=== PATIENT | male | born 1975 ===

== ENCOUNTER → 2017-06-15 | Outpatient (CLI) | payer OTHER ==
[2017-06-15 16:51] LABS: BASO # 0.1 (0.0-0.2); BASO % 1.1 % (0.0-2.0); EOS # 0.2 (0.0-0.7); EOS % 1.4 % (0-4.0); GRAN % 71.2 % (42.2-75.2); HEMATOCRIT 42.5 % (42.0-52.0); HEMOGLOBIN 15.3 g/dl (13.5-18.0); LYMPH # 2.3 (1.2-3.4); LYMPH % 20.8 % (20.0-51.0); MEAN CELL VOLUME 85 fl (80.0-100.0); MEAN CORPUSCULAR HEMOGLOBIN 31 pg (27.0-31.0); MEAN CORPUSCULAR HGB CONC 36 g/dl (33.0-37.0); MEAN PLATELET VOLUME 10.2 fl (7.4-10.4); MONO # 0.6 (0.1-0.6); MONO % 5.1 % (1.7-9.3); PLATELET COUNT 293 K/mm3 (130-400); RED BLOOD COUNT 4.99 M/mm3 (4.20-5.60); REDCELL DISTRIBUTION WIDTH-CV 12.5 % (11.5-14.5)
[2017-06-15 16:53] LABS: CALCIUM 9.3 mg/dL (8.4-10.2); CREATININE, serum 1.13 mg/dL (0.66-1.25)
== END ==
LOC: COL.LAB 14:42
PROVIDERS: Family Medicine
DX: I16.0 Hypertensive urgency (principal)

== ENCOUNTER 2017-12-29 15:20 | Inpatient (IN) | payer OTHER ==
[~2017-12-29] VITALS: Ht 166 cm; Wt 72.6 kg
[2017-12-29] VITALS (131 sets, daily range): BP systolic 160–175; BP diastolic 100–114; PULSE 76–79; TEMP 98.3–98.9; O2SAT 97–100
[2017-12-29 15:46] LABS: BASO # 0.1 (0.0-0.2); EOS # 0.4 (0.0-0.7); EOS % 3.3 % (0-4.0); GRAN # 7.2 (1.4-6.5); GRAN % 64.1 % (42.2-75.2); HEMATOCRIT 39.8 % (42.0-52.0); HEMOGLOBIN 14.2 g/dl (13.5-18.0); LYMPH # 2.9 (1.2-3.4); MEAN CELL VOLUME 85 fl (80.0-100.0); MEAN CORPUSCULAR HEMOGLOBIN 30 pg (27.0-31.0); MEAN CORPUSCULAR HGB CONC 36 g/dl (33.0-37.0); MEAN PLATELET VOLUME 9.7 fl (7.4-10.4); MONO # 0.6 (0.1-0.6); MONO % 5.3 % (1.7-9.3); PLATELET COUNT 257 K/mm3 (130-400); RED BLOOD COUNT 4.69 M/mm3 (4.20-5.60); REDCELL DISTRIBUTION WIDTH-CV 12.4 % (11.5-14.5)
[2017-12-29 16:05] LABS: ALBUMIN 4.1 gm/dL (3.5-5.0); BILIRUBIN,TOTAL 0.7 mg/dL (0.0-1.0); C-REACTIVE PROTEIN 0.8 mg/dL (0.0-0.9); CALCIUM 8.8 mg/dL (8.4-10.2); CREATININE, serum 1.13 mg/dL (0.66-1.25); TOTAL PROTEIN 7.6 gm/dL (6.4-8.2)
[2017-12-29 16:14] LABS: TROPONIN-I 0.018 ng/mL (0.000-0.034)
[2017-12-29 16:24] LABS: COLLECTION METHOD CLEAN CATCH
[2017-12-29 16:36] LABS: PH 7 (5-8); SQUAMOUS EPITHELIAL None Seen /hpf; URINE APPEARANCE Clear; URINE BACTERIA None Seen /hpf; URINE BILIRUBIN Negative (NEGATIVE); URINE BLOOD Negative (NEGATIVE); URINE COLOR Straw; URINE GLUCOSE Negative (NEGATIVE); URINE KETONE Negative (NEGATIVE); URINE LEUKOCYTE ESTERASE Negative (NEGATIVE); URINE NITRATE Negative (NEGATIVE); URINE PROTEIN(semi-quant) 1+ (NEGATIVE); URINE RBC 0-2 /hpf; URINE UROBILINOGEN Negative (NEGATIVE)
[2017-12-29 17:02] LABS: TRICYCLIC ANTIDEPRESS URINE NEGATIVE
[2017-12-30] VITALS (711 sets, daily range): BP systolic 156–177; BP diastolic 97–118; PULSE 67–89; TEMP 97.6–99; O2SAT 96–100
[2017-12-30 05:21] LABS: ALBUMIN 4.1 gm/dL (3.5-5.0); BILIRUBIN,TOTAL 1.1 mg/dL (0.0-1.0); CALCIUM 8.8 mg/dL (8.4-10.2); CREATININE, serum 1.07 mg/dL (0.66-1.25); POTASSIUM 3.2 mmol/L (3.4-5.0); TOTAL PROTEIN 7.6 gm/dL (6.4-8.2)
[2017-12-31 01:15] VITALS: BP 158/96; PULSE 71; TEMP 98.7
[2017-12-31 07:22] LABS: BASO # 0.1 (0.0-0.2); BASO % 1.1 % (0.0-2.0); EOS # 0.3 (0.0-0.7); EOS % 3.5 % (0-4.0); GRAN # 6.6 (1.4-6.5); GRAN % 68.9 % (42.2-75.2); HEMATOCRIT 40.6 % (42.0-52.0); HEMOGLOBIN 14.2 g/dl (13.5-18.0); LYMPH % 20.6 % (20.0-51.0); MEAN CELL VOLUME 86 fl (80.0-100.0); MEAN CORPUSCULAR HEMOGLOBIN 30 pg (27.0-31.0); MEAN CORPUSCULAR HGB CONC 35 g/dl (33.0-37.0); MEAN PLATELET VOLUME 9.9 fl (7.4-10.4); MONO # 0.5 (0.1-0.6); MONO % 5.6 % (1.7-9.3); PLATELET COUNT 256 K/mm3 (130-400); RED BLOOD COUNT 4.75 M/mm3 (4.20-5.60); REDCELL DISTRIBUTION WIDTH-CV 12.5 % (11.5-14.5)
[2017-12-31 07:31] LABS: CALCIUM 8.9 mg/dL (8.4-10.2); CREATININE, serum 1.16 mg/dL (0.66-1.25); MAGNESIUM 2.2 mg/dL (1.6-2.3); PHOSPHOROUS 3.8 mg/dL (2.5-4.5); POTASSIUM 3.2 mmol/L (3.4-5.0)
[2017-12-31 08:51] VITALS: BP 188/101; PULSE 79; TEMP 98.9
[2017-12-31 11:22] VITALS: BP 176/103; PULSE 81; TEMP 98.4
[2017-12-31 16:45] VITALS: BP 153/92; PULSE 71; TEMP 98.7
[2017-12-31 20:04] VITALS: BP 164/96; PULSE 64; TEMP 98
[2018-01-01 00:20] VITALS: BP 172/103; PULSE 68; TEMP 98.3
[2018-01-01 05:38] VITALS: BP 160/94; PULSE 58; TEMP 98.2
[2018-01-01 07:38] LABS: CALCIUM 8.8 mg/dL (8.4-10.2); CREATININE, serum 1.15 mg/dL (0.66-1.25); MAGNESIUM 2.3 mg/dL (1.6-2.3); POTASSIUM 3.8 mmol/L (3.4-5.0)
[2018-01-01 07:44] VITALS: BP 187/109; PULSE 74; TEMP 97.8
[2018-01-01 12:02] VITALS: BP 180/107; PULSE 69; TEMP 98.2
[2018-01-01 15:56] VITALS: BP 163/87; PULSE 67; TEMP 98
[2018-01-01 19:23] LABS: URINE PROTEIN:CREAT RATIO 0.36 (0.00-0.14)
[2018-01-01 21:03] VITALS: BP 183/104; PULSE 72; TEMP 98.7
[2018-01-02 04:30] VITALS: BP 170/104; PULSE 64; TEMP 97.7
[2018-01-02 08:04] VITALS: BP 183/101; PULSE 66; TEMP 98.2
[2018-01-02 10:20] VITALS: BP 141/84; PULSE 61
[2018-01-02 15:56] VITALS: BP 160/88; PULSE 73; TEMP 98.6
[2018-01-02 20:20] VITALS: BP 173/103; PULSE 80; TEMP 97.8
[2018-01-02 22:30] VITALS: BP 143/92; PULSE 66
[2018-01-03 02:00] VITALS: BP 169/106; PULSE 66; TEMP 98.4
[2018-01-03 05:31] VITALS: BP 168/98
[2018-01-03 07:32] LABS: CALCIUM 8.8 mg/dL (8.4-10.2); CREATININE, serum 1.04 mg/dL (0.66-1.25); POTASSIUM 3.4 mmol/L (3.4-5.0)
[2018-01-03 09:02] VITALS: BP 172/101; PULSE 72; TEMP 97.9
[2018-01-03 11:59] VITALS: BP 153/90; PULSE 62; TEMP 98.2
[2018-01-03] MEDS ORDERED: LOPRESSOR 225 MG/TAB PO (13:58)
[2018-01-03] MEDS ORDERED: CATAPRES 0.1MG0.1 MG PO (13:58)
[2018-01-03] MEDS ORDERED: ALDACTONE 25MG25 M1 PO (13:58)
[2018-01-03] MEDS ORDERED: PROCARDIA XL90 MG PO (13:58)
== END 2018-01-03 16:00 | disposition home or self-care (01) | DRG 305 ==
LOC: COL.ER 15:20 → ICU 18:33 → MEDICAL 12-30 18:52
PROVIDERS: Emergency Medicine; Internal Medicine; Internal Medicine Nephrology; Nurse Practitioner Family
DX: I16.0 Hypertensive urgency (principal); E87.3 Alkalosis; I42.2 Other hypertrophic cardiomyopathy; I13.10 Hypertensive heart and chronic kidney disease without heart failure, with stage 1 through stage 4 chronic kidney disease, or unspecified chronic kidney disease; N18.2 Chronic kidney disease, stage 2 (mild); F17.210 Nicotine dependence, cigarettes, uncomplicated; E87.6 Hypokalemia; F12.10 Cannabis abuse, uncomplicated
CPT/HCPCS: 99232-AI; 99233-AI; 99239; J0360; J7050

== ENCOUNTER → 2018-01-10 | Outpatient (CLI) | payer OTHER ==
[~2018-01-10] MED LIST: ALDACTONE 25MG25 M1 PO; CATAPRES 0.1MG0.1 MG PO; LOPRESSOR 225 MG/TAB PO; PROCARDIA XL90 MG PO
[2018-01-10 16:19] LABS: CALCIUM 9.3 mg/dL (8.4-10.2); CREATININE, serum 1.21 mg/dL (0.66-1.25); POTASSIUM 4.6 mmol/L (3.4-5.0)
== END ==
LOC: COL.LAB 11:56
PROVIDERS: Family Medicine
DX: I10 Essential (primary) hypertension (principal)

== ENCOUNTER → 2018-03-15 | Outpatient (CLI) | payer OTHER ==
[~2018-03-15] MED LIST changes: +ADALAT CC90 MG PO; +COREG12.5 MG PO
[2018-03-15 17:45] LABS: CALCIUM 9.1 mg/dL (8.4-10.2); CREATININE, serum 1.32 mg/dL (0.66-1.25); POTASSIUM 4.4 mmol/L (3.4-5.0)
== END ==
LOC: ZCOL.LAB 17:01
PROVIDERS: Family Medicine
DX: I10 Essential (primary) hypertension (principal)